=== PATIENT | female | born 1965 | race African-American/Black ===

== ENCOUNTER 2020-04-17 17:32 | Emergency (ER) | payer MEDICAID, OTHER ==
[~2020-04-17] VITALS: Ht 170.2 cm; Wt 78.0 kg
[2020-04-17 18:24] LABS: *BILIRUBIN,URIN NEGATIVE (NEGATIVE); *BLOOD, URINE NEGATIVE (NEGATIVE); *CLARITY,URINE SLIGHTLY CLOUDY (CLEAR); *COLOR,URINE YELLOW (YELLOW); *KETONES,URINE NEGATIVE (NEGATIVE); *UROBILINOGEN,URINE 0.2 E.U./dl (NORMAL); LEUKOCYTE ESTERASE ,URINE NEGATIVE (NEGATIVE); NITRITE, URINE NEGATIVE (NEGATIVE); UGLUCOSE TRACE (NEGATIVE)
[2020-04-17 18:37] LABS: *URINE HCG, QUAL NEGATIVE (NEGATIVE)
[2020-04-17] MEDS ORDERED: LISI-607 PO (18:46)
[2020-04-17] MEDS ORDERED: METF-440 PO (18:46)
[2020-04-17 18:54] LABS: BACTERIA,URINE NONE SEEN /HPF (NONE SEEN); RBC,URINE 0-3 /HPF (0-3); RED BLOOD CELL CASTS,URINE FEW /LPF (NONE SEEN); SQUAMOUS EPITHELIAL CELL,UR MANY /HPF (NONE SEEN); WBC,URINE 0-3 /HPF (0-3)
--- NOTE | 2020-04-17 18:55 | NUR ---
Dr Nuno at the bedside for MSE.
--- NOTE | 2020-04-17 19:12 | NUR ---
Patient discharged to home in stable condition via steadyambulation. Written and verbal after care instructions given. Rx given. no signs of distress noted. Patient verbalizes understanding of instructions. Stressed follow up or return to ER for worsening s/s.
[2020-04-17 19:15] VITALS: BP 132/91
== END 2020-04-17 19:16 | disposition home or self-care (01) ==
LOC: ER 17:34
DX: M54.5 Low back pain (principal); R73.03 Prediabetes
CPT/HCPCS: 84703; A4663

== ENCOUNTER 2020-05-01 02:22 | Emergency (ER) | payer SELFPAY ==
[~2020-05-01] VITALS: Ht 170.2 cm; Wt 77.1 kg
[~2020-05-01 02:22] MED LIST: LISI-607 PO; METF-440 PO
--- NOTE | 2020-05-01 02:37 | NUR ---
Dr. Dewitt at bedside for MSE
--- NOTE | 2020-05-01 02:46 | NUR ---
Patient discharged to home in stable condition. Noted ambulating with steady gait. Given Rx. Written and verbal after care instructions given. Patient verbalizes understanding of instructions. Stressed follow up or return to ER for worsening s/s. Addendum: 05/01/20 at 0248 by LISA all belongings left with patient
[2020-05-01 02:51] VITALS: BP 126/87
== END 2020-05-01 02:47 | disposition home or self-care (01) ==
LOC: ER 02:24
DX: M54.2 Cervicalgia (principal); E11.9 Type 2 diabetes mellitus without complications; Z79.84 Long term (current) use of oral hypoglycemic drugs; J45.909 Unspecified asthma, uncomplicated
CPT/HCPCS: A4663

== ENCOUNTER 2020-05-31 23:24 | Emergency (ER) | payer SELFPAY ==
[~2020-05-31] VITALS: Ht 170.2 cm; Wt 78.0 kg
--- NOTE | 2020-05-31 23:37 | NUR ---
Patient walked in from home for c/o chest pressure when she was laying down this evening, had chest pain earlier in the day but pain went away. 5/10 pain at this time, pain does radiate to left elbow.
--- NOTE | 2020-05-31 23:40 | NUR ---
patient also c/o having heavy menstrual cycle after 3 months of having no period.
[2020-06-01] MEDS ORDERED: IV NORMAL SALINE 1000 ML BAG IV ONE
[2020-06-01 00:38] LABS: BILIRUBIN,DIRECT 0.1 mg/dL (0.0-0.2); BILIRUBIN,TOTAL 0.2 mg/dL (0.2-1.0); CREATININE 0.8 mg/dL (0.6-1.3); POTASSIUM 3.4 mmol/L (3.5-5.1); TOTAL PROTEIN, SERUM 7.2 g/dL (6.4-8.2)
[2020-06-01 01:05] LABS: BASOPHILS # (AUTO) 0.1 K/uL (0.0-8.0); BASOPHILS % (AUTO) 0.8 % (0.0-2.0); EOSINOPHILS # (AUTO) 0.3 K/uL (0.0-0.7); EOSINOPHILS % (AUTO) 3.8 % (0.0-7.0); HEMATOCRIT 34.7 % (31.2-41.9); HEMOGLOBIN 11.9 g/dL (10.9-14.3); MEAN CORPUSCULAR HEMOGLOBIN 30.8 uug (24.7-32.8); MEAN CORPUSCULAR HGB CONC 34 g/dL (32.3-35.6); MEAN CORPUSCULAR VOLUME 90.2 fL (75.5-95.3); MONOCYTES # (AUTO) 0.5 K/uL (2.0-10.0); MONOCYTES % (AUTO) 7.3 % (0.0-11.0); NEUTROPHILS # (AUTO) 3.3 K/uL (1.8-8.9); NEUTROPHILS % (AUTO) 46.1 % (38.5-71.5); PLATELET COUNT (AUTO) 229 K/uL (179-408); RED BLOOD CELL COUNT(AUTO) 3.85 MIL/uL (3.63-4.92); WHITE BLOOD COUNT (AUTO) 7.2 K/uL (3.8-11.8)
[2020-06-01 01:28] VITALS: BP 135/89
--- NOTE | 2020-06-01 01:28 | NUR ---
Patient discharged to home in stable condition. Written and verbal after care instructions given. Patient verbalizes understanding of instructions. Stressed follow up or return to ER for worsening s/s. Patient left with stable gait.
== END 2020-06-01 01:29 | disposition home or self-care (01) ==
LOC: ER 23:31
DX: R07.89 Other chest pain (principal); I10 Essential (primary) hypertension; N92.4 Excessive bleeding in the premenopausal period; D25.9 Leiomyoma of uterus, unspecified; E11.65 Type 2 diabetes mellitus with hyperglycemia; Z79.84 Long term (current) use of oral hypoglycemic drugs
CPT/HCPCS: 36415; 70030-TC; 71045; 85025; 85730; 93005; J7030

== ENCOUNTER 2020-06-03 18:31 | Emergency (ER) | payer SELFPAY ==
[~2020-06-03] VITALS: Ht 170.2 cm; Wt 78.0 kg
[2020-06-03] MEDS ORDERED: KETOROLAC TROMETHAMINE 15 MG INJ IVP ONE (19:15)
[2020-06-03 19:34] LABS: BASOPHILS # (AUTO) 0.1 K/uL (0.0-8.0); BASOPHILS % (AUTO) 0.9 % (0.0-2.0); EOSINOPHILS # (AUTO) 0.3 K/uL (0.0-0.7); EOSINOPHILS % (AUTO) 4.2 % (0.0-7.0); HEMATOCRIT 34.2 % (31.2-41.9); HEMOGLOBIN 11.6 g/dL (10.9-14.3); LYMPHOCYTES # (AUTO) 2.7 K/uL (20.0-40.0); LYMPHOCYTES % (AUTO) 36.7 % (20.5-51.5); MEAN CORPUSCULAR HEMOGLOBIN 30.5 uug (24.7-32.8); MEAN CORPUSCULAR HGB CONC 34 g/dL (32.3-35.6); MEAN CORPUSCULAR VOLUME 90.1 fL (75.5-95.3); MONOCYTES # (AUTO) 0.5 K/uL (2.0-10.0); NEUTROPHILS # (AUTO) 3.7 K/uL (1.8-8.9); NEUTROPHILS % (AUTO) 51.2 % (38.5-71.5); PLATELET COUNT (AUTO) 256 K/uL (179-408); WHITE BLOOD COUNT (AUTO) 7.2 K/uL (3.8-11.8)
[2020-06-03] MEDS ORDERED: KETOROLAC TROMETHAMINE 30 MG INJ ONE (19:36)
[2020-06-03 19:57] LABS: BILIRUBIN,DIRECT 0.1 mg/dL (0.0-0.2); BILIRUBIN,TOTAL 0.2 mg/dL (0.2-1.0); CREATININE 0.7 mg/dL (0.6-1.3); POTASSIUM 3.5 mmol/L (3.5-5.1); TOTAL PROTEIN, SERUM 7.2 g/dL (6.4-8.2)
--- NOTE | 2020-06-03 20:57 | NUR ---
IV removed. Catheter intact and site benign. Pressure and 4x4 gauze applied to site. No bleeding noted.
--- NOTE | 2020-06-03 21:00 | NUR ---
Patient discharged to home in stable condition. Written and verbal after care instructions given. Patient verbalizes understanding of instructions. Stressed follow up or return to ER for worsening s/s. aa/ox4. able to speak in complete sentences in stable condition respirations even and unlabored ambulatory with steady gait all belongings with pt
[2020-06-03 21:07] VITALS: BP 128/92
== END 2020-06-03 21:00 | disposition home or self-care (01) ==
LOC: ER 18:31
DX: R07.89 Other chest pain (principal); E11.65 Type 2 diabetes mellitus with hyperglycemia; Z79.84 Long term (current) use of oral hypoglycemic drugs; I10 Essential (primary) hypertension; R94.31 Abnormal electrocardiogram [ECG] [EKG]
CPT/HCPCS: 36415; 71045; 80048; 80076; 84484; 85025; 85379; 93005; 96374; 99285; J1885; 70030-TC; A4663

== ENCOUNTER 2020-09-24 09:14 | Emergency (ER) | payer OTHER ==
[~2020-09-24] VITALS: Ht 170.2 cm; Wt 78.0 kg
--- NOTE | 2020-09-24 09:40 | NUR ---
Dr wilson at the bedside for MSE.
--- NOTE | 2020-09-24 09:49 | NUR ---
Patient discharged to home in stable condition. Written and verbal after care instructions given. Patient verbalizes understanding of instructions. Stressed follow up or return to ER for worsening s/s.
[2020-09-24 09:50] VITALS: BP 150/88
== END 2020-09-24 09:50 | disposition home or self-care (01) ==
LOC: ER 09:14
DX: E11.65 Type 2 diabetes mellitus with hyperglycemia (principal); F06.4 Anxiety disorder due to known physiological condition; Z79.84 Long term (current) use of oral hypoglycemic drugs; I10 Essential (primary) hypertension; Z79.899 Other long term (current) drug therapy
CPT/HCPCS: A4663

== ENCOUNTER 2021-02-05 00:42 | Emergency (ER) | payer OTHER ==
[~2021-02-05] VITALS: Ht 170.2 cm; Wt 74.8 kg
[~2021-02-05 00:42] MED LIST changes: -LISI-607 PO; +LISI-782 PO
--- NOTE | 2021-02-05 00:51 | NUR ---
DR. LINDO AT BEDSIDE FOR MSE.
[2021-02-05] MEDS ORDERED: ACETAMINOPHEN 325 MG TABLET PO ONE (01:00)
[2021-02-05] MEDS ORDERED: IV NORMAL SALINE 500 ML BAG IV ONE (01:00)
[2021-02-05] MEDS ORDERED: METOCLOPRAMIDE HCL 10 MG/2 ML VIAL IV ONE (01:00)
[2021-02-05] MEDS ORDERED: diphenhydrAMINE 50 MG/1 ML VIAL IV ONE (01:00)
[2021-02-05] MEDS ORDERED: METOCLOPRAMIDE HCL 10 MG/2 ML VIAL ONE (01:09)
[2021-02-05] MEDS ORDERED: diphenhydrAMINE 50 MG/1 ML VIAL ONE (01:09)
[2021-02-05] MEDS ORDERED: ACETAMINOPHEN 325 MG TABLET ONE (01:09)
[2021-02-05 01:15] LABS: BASOPHILS # (AUTO) 0.1 K/uL (0.0-8.0); BASOPHILS % (AUTO) 0.9 % (0.0-2.0); EOSINOPHILS # (AUTO) 0.4 K/uL (0.0-0.7); EOSINOPHILS % (AUTO) 5.1 % (0.0-7.0); HEMATOCRIT 38.1 % (31.2-41.9); HEMOGLOBIN 12.6 g/dL (10.9-14.3); LYMPHOCYTES # (AUTO) 2.6 K/uL (20.0-40.0); LYMPHOCYTES % (AUTO) 36.4 % (20.5-51.5); MEAN CORPUSCULAR HEMOGLOBIN 30.2 uug (24.7-32.8); MEAN CORPUSCULAR HGB CONC 33 g/dL (32.3-35.6); MEAN CORPUSCULAR VOLUME 91.4 fL (75.5-95.3); MONOCYTES # (AUTO) 0.5 K/uL (2.0-10.0); MONOCYTES % (AUTO) 7.5 % (0.0-11.0); NEUTROPHILS # (AUTO) 3.6 K/uL (1.8-8.9); NEUTROPHILS % (AUTO) 50.1 % (38.5-71.5); PLATELET COUNT (AUTO) 247 K/uL (179-408); RED BLOOD CELL COUNT(AUTO) 4.17 MIL/uL (3.63-4.92); WHITE BLOOD COUNT (AUTO) 7.2 K/uL (3.8-11.8)
[2021-02-05 01:23] LABS: POTASSIUM 3.4 mmol/L (3.5-5.1)
[2021-02-05] MEDS ORDERED: POTASSIUM CHLORIDE 20 MEQ TAB.PRT.SR PO ONE (02:15)
[2021-02-05] MEDS ORDERED: INSULIN REGULAR, HUMAN 300 UNIT/3 ML VIAL SQ ONE (02:15)
[2021-02-05] MEDS ORDERED: INSULIN REGULAR, HUMAN 300 UNIT/3 ML VIAL ONE (02:16)
[2021-02-05] MEDS ORDERED: POTASSIUM CHLORIDE 20 MEQ TAB.PRT.SR ONE (02:16)
[2021-02-05] MEDS ORDERED: POTA20TA10 PO (04:22)
[2021-02-05] MEDS ORDERED: METO-295 PO (04:22)
[2021-02-05 04:35] LABS: *BILIRUBIN,URIN NEGATIVE (NEGATIVE); *BLOOD, URINE NEGATIVE (NEGATIVE); *CLARITY,URINE CLEAR (CLEAR); *COLOR,URINE YELLOW (YELLOW); *KETONES,URINE NEGATIVE (NEGATIVE); *UROBILINOGEN,URINE 0.2 E.U./dl (NORMAL); LEUKOCYTE ESTERASE ,URINE NEGATIVE (NEGATIVE); NITRITE, URINE NEGATIVE (NEGATIVE); UGLUCOSE 3+ (NEGATIVE)
[2021-02-05 04:41] LABS: *AMPHETAMINE, URINE NEGATIVE (NEGATIVE); *CANNABINOID, URINE NEGATIVE (NEGATIVE); *COCCAINE, URINE NEGATIVE (NEGATIVE); *OPIATE, URINE NEGATIVE (NEGATIVE); *PHENCYCLIDINE SCREEN,URINE NEGATIVE (NEGATIVE)
[2021-02-05 04:54] VITALS: BP 127/83
[2021-02-05 04:56] LABS: BACTERIA,URINE NONE SEEN /HPF (NONE SEEN); RBC,URINE NONE SEEN /HPF (0-3); SQUAMOUS EPITHELIAL CELL,UR NONE SEEN /HPF (NONE SEEN); WBC,URINE NONE SEEN /HPF (0-3)
== END 2021-02-05 04:54 | disposition home or self-care (01) ==
LOC: ER 00:45
DX: R51.9 Headache, unspecified (principal); E11.65 Type 2 diabetes mellitus with hyperglycemia; Z79.84 Long term (current) use of oral hypoglycemic drugs; E87.6 Hypokalemia; I67.2 Cerebral atherosclerosis; I10 Essential (primary) hypertension; Z79.899 Other long term (current) drug therapy; R81 Glycosuria
CPT/HCPCS: 36415; 70450; 71045; 80048; 80307; 81001; 82962 ×2; 84484 ×2; 85025; 93005 ×2; 96361; 96372; 96374; 96375; 99285; J1200; J1815; J2765; 70030-TC; A4663; J7030

== ENCOUNTER 2022-01-28 05:49 | Emergency (ER) | payer SELFPAY ==
[~2022-01-28 05:49] MED LIST changes: +METO-295 PO; +POTA-194 PO
--- NOTE | 2022-01-28 06:49 | NUR ---
Pt not in waiting room.
== END 2022-01-28 06:50 | disposition left against medical advice (07) ==
LOC: ER 05:52
DX: Z53.21 Procedure and treatment not carried out due to patient leaving prior to being seen by health care provider (principal)

== ENCOUNTER 2025-03-21 00:21 | Emergency (ER) | payer OTHER ==
[~2025-03-21] VITALS: Ht 170.2 cm; Wt 72.6 kg
[2025-03-21] MEDS ORDERED: INSU100V7 SQ (00:34)
[2025-03-21] MEDS ORDERED: LISI10TA29 PO ×2 (00:34→01:57)
[2025-03-21] MEDS ORDERED: GUAIFENESIN/CODEINE 5 ML LIQUID UDC ONE (00:45)
[2025-03-21] MEDS ORDERED: predniSONE 10 MG TABLET ONE (00:45)
[2025-03-21] MEDS ORDERED: predniSONE 50 MG TABLET ONE (00:45)
[2025-03-21] MEDS ORDERED: ALBU8.5H8 IH (00:47)
[2025-03-21] MEDS ORDERED: PRED20TA PO (00:47)
[2025-03-21] MEDS: GUAIFENESIN/CODEINE 5 ML LIQUID UDC PO ONE (00:49)
[2025-03-21] MEDS: predniSONE 20 MG TABLET PO ONE (00:49)
[2025-03-21 00:53] LABS: BASOPHILS # (AUTO) 0.1 K/UL (0.0-0.2); BASOPHILS % (AUTO) 0.9 % (0.0-2.0); EOSINOPHILS # (AUTO) 0.3 K/uL (0.0-0.7); EOSINOPHILS % (AUTO) 3.8 % (0.0-7.0); HEMATOCRIT 38.6 % (31.2-41.9); LYMPHOCYTES # (AUTO) 1.8 K/uL (0.8-4.8); LYMPHOCYTES % (AUTO) 25.8 % (20.5-51.5); MEAN CORPUSCULAR HEMOGLOBIN 30.4 uug (24.7-32.8); MEAN CORPUSCULAR HGB CONC 34 g/dL (32.3-35.6); MONOCYTES # (AUTO) 0.8 K/uL (0.1-1.30); MONOCYTES % (AUTO) 11.6 % (0.0-11.0); NEUTROPHILS % (AUTO) 57.9 % (38.5-71.5); PLATELET COUNT (AUTO) 215 K/uL (179-408); RED BLOOD CELL COUNT(AUTO) 4.28 MIL/uL (3.63-4.92); RED CELL DISTRIBUTION WIDTH 13.6 % (12.3-17.7); WHITE BLOOD COUNT (AUTO) 6.8 K/uL (3.8-11.8)
[2025-03-21 01:02] LABS: CALCIUM 8.4 mg/dL (8.5-10.1); CARBON DIOXIDE 25 mmol/L (21-32); CHLORIDE 101 mmol/L (98-107); CREATININE 0.7 mg/dL (0.6-1.3); DIFFERENTIAL COMMENT 1; GLUCOSE 305 mg/dL (74-106); POTASSIUM 3.6 mmol/L (3.5-5.1); SODIUM SERUM 134 mmol/L (136-145); UREA NITROGEN, BLOOD 16 mg/dL (7-18)
[2025-03-21 01:19] LABS: ALANINE AMINOTRANSFERASE 35 U/L (14-59); ALKALINE PHOSPHATASE 130 U/L (50-136); ASPARTATE AMINOTRANSFERASE 17 U/L (15-37); BILIRUBIN,DIRECT 0.1 mg/dL (0.0-0.2); BILIRUBIN,TOTAL 0.3 mg/dL (0.2-1.0); NT-PRO BNP 12 pg/mL (0-125); TOTAL PROTEIN, SERUM 6.6 g/dL (6.4-8.2)
[2025-03-21 02:08] VITALS: BP 130/60; O2SAT 99
== END 2025-03-21 02:12 | disposition home or self-care (01) ==
LOC: ER 00:30
DX: J20.9 Acute bronchitis, unspecified (principal); J02.9 Acute pharyngitis, unspecified; E11.9 Type 2 diabetes mellitus without complications; I10 Essential (primary) hypertension; J45.909 Unspecified asthma, uncomplicated; Z79.52 Long term (current) use of systemic steroids; Z79.84 Long term (current) use of oral hypoglycemic drugs; Z79.899 Other long term (current) drug therapy; Z88.7 Allergy status to serum and vaccine; Z87.39 Personal history of other diseases of the musculoskeletal system and connective tissue; Z20.822 Contact with and (suspected) exposure to COVID-19
CPT/HCPCS: 99285; 71045; 87426; 87804 ×2; 80076; 80048; 83880; 85025; 85379; 84484; 36415; 93005; J7512 ×2; A4606; A4663

== ENCOUNTER 2025-06-05 08:45 | Emergency (ER) | payer OTHER ==
[~2025-06-05] VITALS: Ht 170.2 cm; Wt 71.2 kg
[~2025-06-05 08:45] MED LIST changes: +ALBU8.5H8 IH; +INSU100V7 SQ; -LISI-782 PO; +LISI10TA29 PO; -METO-295 PO; -POTA-194 PO; +PRED20TA PO
[2025-06-05 09:04] VITALS: BP 136/75
[2025-06-05 09:20] LABS: *BILIRUBIN,URIN NEGATIVE (NEGATIVE); *BLOOD, URINE NEGATIVE (NEGATIVE); *CLARITY,URINE CLEAR (CLEAR); *COLOR,URINE YELLOW (YELLOW); *KETONES,URINE NEGATIVE (NEGATIVE); *PROTEIN,URINE NEGATIVE (NEGATIVE); *UROBILINOGEN,URINE 0.2 E.U./dl (NORMAL); LEUKOCYTE ESTERASE ,URINE NEGATIVE (NEGATIVE); NITRITE, URINE NEGATIVE (NEGATIVE)
[2025-06-05 09:23] LABS: UGLUCOSE 3+ (NEGATIVE)
[2025-06-05 09:39] LABS: SQUAMOUS EPITHELIAL CELL,UR FEW /HPF (NONE SEEN)
[2025-06-05 10:01] LABS: PLATELET COUNT (AUTO) 216 K/uL (179-408); RED BLOOD CELL COUNT(AUTO) 4.37 MIL/uL (3.63-4.92); RED CELL DISTRIBUTION WIDTH 13.1 % (12.3-17.7); WHITE BLOOD COUNT (AUTO) 6.7 K/uL (3.8-11.8)
[2025-06-05 10:17] LABS: ASPARTATE AMINOTRANSFERASE 11.0 U/L (15-37); CREATININE 0.6 mg/dL (0.6-1.3); SODIUM SERUM 141.0 mmol/L (136-145); TOTAL PROTEIN, SERUM 7.2 g/dL (6.4-8.2); UREA NITROGEN, BLOOD 10.0 mg/dL (7-18)
[2025-06-05] MEDS ORDERED: FLAS1EAC2 TP (10:30)
[2025-06-05] MEDS ORDERED: FLAS1KIT2 TP (10:30)
[2025-06-05 11:02] VITALS: BP 136/75; TEMP 97.5; O2SAT 98
== END 2025-06-05 11:03 | disposition home or self-care (01) ==
LOC: ER 08:45
DX: E11.65 Type 2 diabetes mellitus with hyperglycemia (principal); R35.0 Frequency of micturition; R10.2 Pelvic and perineal pain; I11.9 Hypertensive heart disease without heart failure; J45.909 Unspecified asthma, uncomplicated; Z79.52 Long term (current) use of systemic steroids; Z79.84 Long term (current) use of oral hypoglycemic drugs; Z79.899 Other long term (current) drug therapy; Z88.7 Allergy status to serum and vaccine
CPT/HCPCS: 36415; 84681; 85025; 87086; A4606; A4663